=== PATIENT | male | born 1935 | race Caucasian/White ===

== ENCOUNTER 2016-12-11 06:02 | Emergency (ER) | payer MEDICARE, OTHER ==
[~2016-12-11] VITALS: Ht 175.3 cm; Wt 81.8 kg
[2016-12-11] MEDS ORDERED: ALBUTEROL 0.5% (NEB) 2.5 MG/0.5 ML AMP NEB STA (06:05)
[2016-12-11] MEDS ORDERED: IPRATROPIUM (NEB) 0.5 MG/2.5 ML AMP NEB STA (06:05)
[2016-12-11] MEDS ORDERED: METHYLPREDNISOLONE 125 MG INJ IV STA (06:05)
[2016-12-11 06:18] VITALS: Ht 175.3 cm; Wt 81.8 kg
[2016-12-11 06:31] LABS: BASOPHILS % 0.4 % (0.0-2.0); EOSINOPHILS # 0.4 10^3/ul (0.0-0.5); HEMATOCRIT 45.1 % (42.0-52.0); HEMOGLOBIN 14.9 g/dl (14.0-18.0); LYMPHOCYTES # 2.2 10^3/ul (0.8-2.9); LYMPHOCYTES % 25.1 % (15.0-51.0); MEAN CORPUSCULAR HEMOGLOBIN 29.8 pg (29.0-33.0); MEAN CORPUSCULAR HGB CONC 32.9 g/dl (32.0-37.0); MEAN CORPUSCULAR VOLUME 90.3 fl (82.0-101.0); MEAN PLATELET VOLUME 8.3 fl (7.4-10.4); MONOCYTE # 0.9 10^3/ul (0.3-0.9); MONOCYTES % 10.6 % (0.0-11.0); NEUTROPHIL # 5.4 10^3/ul (1.6-7.5); NEUTROPHILS % 59.9 % (39.0-77.0); PLATELET COUNT 238 10^3/UL (140-440); RED BLOOD COUNT 4.99 10^6/ul (4.70-6.10); RED CELL DISTRIBUTION WIDTH 15.1 % (11.5-14.5); UNCORRECTED WBC 8.9 10^3/ul (4.8-10.8); WHITE BLOOD COUNT 8.9 10^3/ul (4.8-10.8)
[2016-12-11 06:43] LABS: CONDITION 1; LH ANALYZER COMMENTS 1
--- NOTE | 2016-12-11 06:44 | RADRPT ---
PROCEDURE: Chest. CLINICAL INDICATION: Chest pain. TECHNIQUE: Single frontal view of the chest was obtained. COMPARISON: None. FINDINGS: Mediasternotomy wires are present. The cardiac silhouette is enlarged. The aortic arch is calcifie d. There is an opacity overlying the left lung apex. There are increased interstitial markings elsa aterally. There is no pleural effusion. There is no pneumothorax. IMPRESSION: Aortic atherosclerosis. There is opacity overlying the left lung apex which could represent a mass o r aneurysm. Further evaluation by CT chest is recommended. Bilateral increased interstitial markings could represent interstitial edema or chronic lung changes . Moderate cardiomegaly. .Jamal Torre MD, MD Date Time Electronically viewed and signed by .Jamal Torre MD, on 12/11/2016 06:44 .T/
[2016-12-11 06:46] LABS: INR 0.95; PROTIME 12.7 Sec (12.2-14.2)
[2016-12-11 06:47] LABS: PARTIAL THROMBOPLASTIN TIME 29.6 Sec (25.0-35.0)
[2016-12-11 06:58] LABS: CK-MB 2.24 ng/ml (0.0-2.4); TROPONIN-I 0.021 ng/ml (0.00-0.12)
[2016-12-11] MEDS ORDERED: ASPI-664 PO (07:13)
[2016-12-11] MEDS ORDERED: CARV12.598 PO (07:15)
[2016-12-11] MEDS ORDERED: CRES10 PO (07:15)
[2016-12-11] MEDS ORDERED: AMLO-147 PO (07:16)
[2016-12-11] MEDS ORDERED: EZET10TA3 PO (07:16)
[2016-12-11] MEDS ORDERED: ALBU8.5H3 INH (07:16)
[2016-12-11 07:25] LABS: CREATININE 0.91 mg/dl (0.61-1.24)
[2016-12-11 07:26] LABS: CALCIUM 9.2 mg/dl (8.4-10.2)
[2016-12-11] MEDS ORDERED: IOHEXOL 100 ML ONE (07:34)
[2016-12-11] MEDS ORDERED: SOD CHLORIDE 0.9% 100 ML ONE (07:34)
--- NOTE | 2016-12-11 08:30 | RADRPT ---
PROCEDURE: CT angiography of the chest with contrast. CLINICAL INDICATION: Chest pain, abnormal chest x-ray TECHNIQUE: Contrast enhanced angiography of the chest was performed on a high resolution multi det placido scanner during the administration of intravenous contrast. Multiplanar reconstructions, three- dimensional reconstructions, as well as maximal intensity projection images are produced and reviewe d. CTDI = 19, 91 mGy. DLP = 810 mGy-cm. CONTRAST: 100 ml Omnipaque 350 administered without adverse event. COMPARISON: Chest radiograph 12/11/2016 FINDINGS: Examination is degraded due to pulmonary arterial phase of enhancement with minimal aortic enhanceme nt. Aortic measurements as follows: Sinuses of Valsalva: 4.0 x 4.0 x 4.1 cm; cusp - commissure Sinotubular junction: 4.0 x 4.1 cm Proximal - mid ascendin.8 x 4.9 cm Proximal arch: 3.7 x 3.8 cm Mid arch at the level of the aneurysm neck: 3.8 cm Distal arch: 3.4 x 3.5 cm Mid descendin.5 x 3.5 cm Diaphragm: 3.2 x 3.3 cm Normal origin of the innominate and left common carotid arteries are observed. An aneurysm extends c ranially from the superior margin of the aortic arch distal to the origin of the left common carotid artery. Neck of the aneurysm measures approximately 3.3 x 4.0 cm. The aneurysm measures 7.0 x 7.7 cm in maximal diameter with a length of 7.5 cm. The origin of the left subclavian artery is not salvatore anaid visualized due to the early phase of enhancement and this aneurysm likely arises from its origi n. Lung parenchyma: Mild bilateral pleural effusions with associated atelectasis. Mild cardiopulmonary edema is present. Airways: Moderate peribronchial thickening compatible with chronic small airways disease. Pulmonary arteries: Normal caliber, no filling defects. Thoracic veins: Significant extrinsic compression of the left brachiocephalic vein by the patient's aneurysm producing bullous resistance and reflux into the left shoulder collaterals. Heart: Ungated examination demonstrates extensive [place] coronary artery disease. mild cardiomegaly . Calcifications of the aortic valve are observed. Mediastinum: Postoperative changes from coronary artery bypass grafting. Lymph nodes: No mediastinal, hilar, or axillary lymphadenopathy Osseous structures: Moderate degenerative changes of both shoulders. Moderate multilevel thoracic s pondylosis. Postoperative changes from median sternotomy with sternal wires and union of the sternal fragments. 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 Visualization is degraded due to delayed enhancement as a result of the an eurysm compressing the left brachiocephalic vein producing flow limitation. Small bilateral pleural effusions with associated atelectasis. Mild cardiopulmonary edema. Results were discussed with Dr. Arredondo by telephone at 0828 hours on 12/11/[address] Javed jerez RPTAT: AA .Javed Chung MD, Date Time Electronically viewed and signed by .Javed Chung MD, on 12/11/2016 08:30 .B/
--- NOTE | 2016-12-11 09:48 | ERA ---
ER Documentation Chief Complaint Date/Time DATE: 12/11/16 TIME: 09:44 Chief Complaint BIB RA 80 DUE TO RESP DISTRESS, ASTHMA EXACERBATION HPI This is an 81-year-old male presents to the emergency room initially for evaluation of shortness of breath and possible asthma exacerbation. This patient was breathing heavily, he does only speak Sammarinese I was unable to ascertain a full history. This patient was tachypneic and was subsequently placed on a BiPAP. ROS All systems reviewed and are negative except as per history of present illness. Medications Home Meds Reported Medications Albuterol Sulfate* (Proair HFA*) 8.5 Gm Hfa.aer.ad, 2 PUFF INH Q4H Y for WHEEZING AND SOB, #1 INHALER 12/11/16 Ezetimibe* (Zetia*) 10 Mg Tablet, 10 MG PO HS, TAB 12/11/16 Amlodipine Besylate* (Amlodipine Besylate*) 10 Mg Tablet, 10 MG PO DAILY, #30 TAB 12/11/16 Carvedilol* (Coreg*) 12.5 Mg Tablet, 12.5 MG PO BID, #60 TAB 12/11/16 Rosuvastatin Calcium* (Crestor*) 10 Mg Tablet, 10 MG PO QHS, #30 TAB 12/11/16 Aspirin* (Aspirin* EC) 81 Mg Tablet.dr, 81 MG PO DAILY, TAB 12/11/16 Allergies Allergies: Coded Allergies: No Known Allergy (Unverified , 12/11/16) PMhx/Soc History of Surgery: Yes (ANGIOPLASTY, CABG, APPY, HERNIA ) Hx Neurological Disorder: No Hx Respiratory Disorders: Yes (ASTHMA) Hx Cardiac Disorders: Yes (HTN, WI, HYPERLIPDEMIA ) Hx Psychiatric Problems: No Hx Miscellaneous Medical Probl: No Hx Alcohol Use: No Hx Substance Use: No Hx Tobacco Use: No Smoking Status: Never smoker Physical Exam Vitals Vital Signs Date Time Temp Pulse Resp B/P Pulse Ox O2 Delivery O2 Flow Rate FiO2 12/11/16 07:36 69 18 143/77 99 BIPAP 12/11/16 06:18 98.1 85 23 166/74 89 12/11/16 06:10 93 28 100 35 12/11/16 06:05 93 100 35 Physical Exam INITIAL VITAL SIGNS: Reviewed by me GENERAL: The patient is well developed moderate respiratory distress HEENT: Pupils equal, round, and reactive to light. EOMI. There is no scleral icterus. NECK: C-spine is soft and supple, there is no meningismus. There is no cervical lymphadenopathy. LUNGS: Rales auscultated in the bilateral lower lobes HEART: Regular rate and rhythm, no murmurs, clicks, rubs or gallops. ABDOMEN: Soft, non-tender, non-distended. There are bowel sounds in all four quadrants. No rebound or guarding. EXTREMITIES: There is no peripheral cyanosis or edema. No focal swelling or erythema. NEUROLOGICAL: The patient moves all four extremities with 5/5 strength. Cranial nerves II - XII are intact. Normal gait. Alert and oriented SKIN: There is no apparent rash or petechiae. HEME/LYMPHATIC: There is no evidence of excessive bruising or lymphedema. PSYCHIATRIC: The patient does not appear anxious or depressed. Result Diagram: 12/11/16 0610 12/11/16 0610 Results 24 hrs Laboratory Tests Test 12/11/16 06:10 Activated Partial Thromboplast Time 29.6Sec Anion Gap 19 Basophils # 0.010^3/ul Basophils % 0.4% Blood Morphology Comment Blood Urea Nitrogen 18mg/dl Calcium Level 9.2mg/dl Carbon Dioxide Level 27mmol/L Chloride Level 102mmol/L Creatine Kinase 134IU/L Creatine Kinase Index 1.7 Creatinine 0.91mg/dl Creatinine Kinase MB (Mass) 2.24ng/ml Eosinophils # 0.410^3/ul Eosinophils % 4.0% Glucose Level 130mg/dl Hematocrit 45.1% Hemoglobin 14.9g/dl INR International Normalized Ratio 0.95 Lymphocytes # 2.210^3/ul Lymphocytes % 25.1% Mean Corpuscular Hemoglobin 29.8pg Mean Corpuscular Hemoglobin Concent 32.9g/dl Mean Corpuscular Volume 90.3fl Mean Platelet Volume 8.3fl Monocytes # 0.910^3/ul Monocytes % 10.6% Neutrophils # 5.410^3/ul Neutrophils % 59.9% Nucleated Red Blood Cells # 0.010^3/ul Nucleated Red Blood Cells % 0.0/100WBC Platelet Count 59907^3/UL Potassium Level 4.0mmol/L Prothrombin Time 12.7Sec Prothrombin Time Ratio 1.0 Red Blood Count 4.9910^6/ul Red Cell Distribution Width 15.1% Sodium Level 144mmol/L Troponin I 0.021ng/ml White Blood Count 8.910^3/ul Current Medications Medications (Trade) Dose Ordered Sig/Josiah Route PRN Reason Start Time Stop Time Status Last Admin Dose Admin Albuterol (Proventil 0.5% (Neb)) 10 mg ONCE STAT NEB 12/11/16 06:05 12/11/16 06:07 DC 12/11/16 06:42 Ipratropium [place] (Atrovent 0.02% (Neb)) 1.5 mg ONCE STAT NEB 12/11/16 06:05 12/11/16 06:07 DC 12/11/16 06:42 Methylprednisolone Sodium Succinate 125 mg 125 mg ONCE STAT IV 12/11/16 06:05 12/11/16 06:07 DC 12/11/16 06:35 Iohexol 100 ml @ ud STK-MED ONCE .ROUTE 12/11/16 07:34 12/11/16 07:35 DC 12/11/16 08:11 Sodium Chloride (NS) 100 ml @ ud STK-MED ONCE .ROUTE 12/11/16 07:34 12/11/16 07:35 DC 12/11/16 08:11 Nicardipine HCl (Cardene) 30 mg ONCE ONCE PO 12/11/16 10:00 12/11/16 10:01 Procedures/MDM EKG: Rate/Rhythm: [Normal Sinus Rhythm] QRS, ST, T-waves: [No changes consistent w/ acute ischemia] Impression: [No evidence of ischemia or arrhythmia] Chest X-ray 1V Interpreted by me: Soft Tissue: Aortic atherosclerosis. There is opacity overlying the left lung apex which could represent a mass or aneurysm. Further evaluation by CT chest is recommended. Bilateral increased interstitial markings could represent interstitial edema or chronic lung changes. Moderate cardiomegaly. 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 Visualization is degraded due to delayed enhancement as a result of the aneurysm compressing the left brachiocephalic vein producing flow limitation. Small bilateral pleural effusions with associated atelectasis. Mild cardiopulmonary edema. This is an 81-year-old male presents to the emergency room for evaluation of shortness of breath. When I evaluated this patient he was tachypneic, and appeared to be in mild respiratory distress. He was placed on a BiPAP and was given an in-line breathing treatment. When I reevaluated him he was doing much better. His x-ray was concerning for possible aneurysm. I did obtain a CTA of the chest which confirmed a large 7 x 7.7 cm aneurysm arising from the aortic arch. I have contacted our vascular surgeon, Dr. perez who states that her IC cannot handle such a patient postop. He suggested transfer to a tertiary care center. I have contacted the [facility] and spoken to Dr. price who accepted this patient. The patient was originally given clevoprex here in the emergency room however we switched over to oral Cardene per Dr. Tyler's recommendations. This patient is hemodynamically stable with systolic blood pressure of 130. His heart rate is 79 bpm. His oxygen saturations 100%, and he has been weaned off of the BiPAP. Critical Care: Excluding all billable procedures Time: 48 minutes Treatments/Evaluations: Close monitoring and treatment of unstable vital signs, cardiorespiratory, and neurologic status, while maintaining tight balance of fluid, respiratory, and cardiac interventions. Departure Diagnosis: Primary Impression: Aortic aneurysm Additional Impressions: Pulmonary edema Respiratory distress Condition: Serious ZAHRAA ROCHA DO Dec 11, 2016 09:48
[2016-12-11] MEDS ORDERED: NICARDipine HCL 30 MG CAPSULE PO ONE (10:00)
[2016-12-11 10:47] VITALS: BP 118/71; PULSE 82; RESP 18; TEMP 98
== END 2016-12-11 10:49 | disposition short-term general hospital (02) ==
LOC: E/R 06:02
DX: I71.9 Aortic aneurysm of unspecified site, without rupture (principal); I10 Essential (primary) hypertension; J45.901 Unspecified asthma with (acute) exacerbation; J81.1 Chronic pulmonary edema; R06.00 Dyspnea, unspecified; Z79.82 Long term (current) use of aspirin; Z95.1 Presence of aortocoronary bypass graft
CPT/HCPCS: 36415; 71010; 71275; 80048; 82550; 82553; 84484; 85025; 85610; 85730; 93005; 94644; 94660; 96374; 99291; J2930; Q9967